=== PATIENT | male | born 1965 | race Caucasian/White ===

== ENCOUNTER 2016-12-28 11:16 | Emergency (ER) | payer SELFPAY ==
[~2016-12-28 11:16] MED LIST: ASPIR 8181 M1 PO; ASPIR 8181 MG PO; ASPIRIN EC LOW81 MG PO; BUTALBITAL COMP PO; CELEXA20 MG PO; CHANTIX0.5 MG PO; CLONAZEPAM0.5 MG PO; CLONAZEPAM1 M2 PO; CYCLOBENZAPRINE; DARVOCET-N 1001 EACH PO; EFFIENT10 MG/TAB PO; FLEXERIL10 MG; KLONOPIN1 M1 PO; LEXAPRO20 M2 PO; LIPITOR20 M1 PO; LISINOPRIL2.5 MG PO; LISINOPRIL5 MG PO; LOPRESSOR; LOPRESSOR100 M1 PO; LOPRESSOR25 MG/TAB PO; LOPRESSOR50 M1 PO; LOPRESSOR50 MG PO; LORAZEPAM; LORTAB 5/500 TA1 TAB PO; METOPROLOL TART25 M1 PO; METOPROLOL TART25 MG; NAPROSYN500 MG; NICODERM14 MG/PAT1 TD; NITROQUICK0.4 MG SL; NORCO 5-325 TA1 EACH PO; NORVASC10 M2 PO; PLAVIX75 MG PO; PRINIVIL20 M1 PO; PROTONIX40 M2 PO; TOPROL PO; TYLENOL325 M1 PO; VALIUM5 MG PO; VICODIN 5/500 T1 TAB PO; ZOCOR20 M1 PO; ZOCOR20 MG PO; ZOCOR40 MG PO
[2016-12-28 12:17] LABS: BASO % 0.6 % (0-2); BASO ABSOLUTE COUNT 0.1 tho/cmm (0.0-0.2); EOS % 0.8 % (0-7); EOSINOPHIL ABSOLUTE COUNT 0.1 tho/cmm (0.0-0.7); HGB-HEMOGLOBIN 13.5 gm/dl (13.5-17.0); IMMATURE GRANULOCYTES ABSOLUTE 0.02 tho/cmm (0-0.03); IMMATURE GRANULOCYTES PERCENT 0.2 % (0-0.3); LYMPH % 33.2 % (20-45); LYMPH ABSOLUTE COUNT 2.8 tho/cmm (0.8-4.5); MCHC MEAN CORPUSCULAR HGB CONC 34.6 % (32.0-36.0); MCV (MEAN CELL VOLUME) 89.4 fl (82.0-96.0); MEAN PLATELET VOLUME 12.2 cmc (9.4-12.4); MONO % 6.8 % (0-12); MONOCYTE ABSOLUTE COUNT 0.6 tho/cmm (0.0-1.2); NEUTROPHILS % 58.4 % (40-80); PLATELET COUNT 165 tho/cmm (150-450); RED BLOOD COUNT 4.36 mil/cmm (4.40-5.70); RED CELL DISTRIBUTION WIDTH 14.1 % (12.4-16.4); WHITE BLOOD COUNT 8.5 tho/cmm (4.0-10.0)
[2016-12-28 12:38] LABS: ALBUMIN 3.7 g/dl (3.5-5.0); ALKALINE PHOSPHATASE 99 U/L (33-138); ALT/SGPT 54 U/L (12-78); ANION GAP 17 mmol/L (0-20); AST/SGOT 27 U/L (10-40); BILIRUBIN,TOTAL 0.2 mg/dl (0.0-1.5); BLOOD UREA NITROGEN 17 mg/dl (6-24); CALCIUM 8.2 mg/dl (8.5-10.5); CARBON DIOXIDE-VENOUS 19 mmol/L (22-32); CHLORIDE 113 mmol/l (96-110); CREATININE 1.37 mg/dl (0.60-1.30); GLUCOSE 92 mg/dL (70-110); POTASSIUM 4.3 mmol/L (3.7-5.1); SODIUM 145 mmol/L (135-145); eGFR VALUE FOR BLACK 69 mL/Min
[2016-12-28 12:44] LABS: ALCOHOL (ETOH) 315 mg/dl (<10)
[2016-12-28] MEDS ORDERED: NORCO 5-325 TA1 EACH PO (15:24)
[2016-12-28] MEDS ORDERED: KEFLEX500 M4 PO (15:25)
== END 2016-12-28 15:38 ==
LOC: EDMED 11:16
PROVIDERS: Emergency Medicine
PROC: 0HQFXZZ Repair Right Hand Skin, External Approach (ICD-10-PCS; principal; 2016-12-28)
DX: S92.351A Displaced fracture of fifth metatarsal bone, right foot, initial encounter for closed fracture (principal); S61.411A Laceration without foreign body of right hand, initial encounter; I95.89 Other hypotension; E86.0 Dehydration; F10.129 Alcohol abuse with intoxication, unspecified; I25.10 Atherosclerotic heart disease of native coronary artery without angina pectoris; Z95.5 Presence of coronary angioplasty implant and graft; Y90.8 Blood alcohol level of 240 mg/100 ml or more; F17.200 Nicotine dependence, unspecified, uncomplicated; Z23 Encounter for immunization; Z79.899 Other long term (current) drug therapy; X99.9XXA Assault by unspecified sharp object, initial encounter; Y92.410 Unspecified street and highway as the place of occurrence of the external cause
CPT/HCPCS: G0480; J0696; J7030; Q9967